=== PATIENT | male | born 1940 | race Hispanic/Latino ===

== ENCOUNTER 2017-10-18 10:08 | Emergency (ER) | payer MEDICARE ==
[2017-10-18 10:12] VITALS: BMI 22.5
[2017-10-18] MEDS ORDERED: Iodixanol 320 MG/ML 100 ML BOTTLE IV ONE (10:15)
[2017-10-18 10:24] LABS: BASO # 0.1 K/uL (0.0-0.2); BASO % 0.9 % (0.0-2.0); EOS # 0.1 K/uL (0.0-0.7); EOS % 1.2 % (0.0-4.0); HEMOGLOBIN 14.8 g/dL (12.0-18.0); LYMPH % 8.6 % (20.0-40.0); MEAN CELL VOLUME 95.3 fL (80.0-94.0); MEAN CORPUSCULAR HEMOGLOBIN 32.8 pg (27.0-31.0); MEAN CORPUSCULAR HGB CONC 34.4 g/dL (33.0-37.0); MEAN PLATELET VOLUME 10.8 fL (7.2-11.7); MONO # 0.9 K/uL (0.0-0.8); MONO % 7.5 % (0.0-10.0); NEUT # 9.5 K/uL (1.8-7.0); NEUT % 81.8 % (50.0-75.0); RED CELL DISTRIBUTION WIDTH 13.3 % (11.5-14.5); WHITE BLOOD COUNT 11.7 K/uL (4.8-10.8)
[2017-10-18 10:30] LABS: PLATELET COUNT 130 K/uL (130-400)
[2017-10-18 10:32] LABS: INR 1.2; PROTHROMBIN TIME 13.3 SECONDS (9.7-12.2)
[2017-10-18] MEDS ORDERED: Labetalol 25mg/5ml Syringe IVP STA (10:35)
--- NOTE | 2017-10-18 10:35 | CT ---
PROCEDURE: CT HEAD WITHOUT CONTRAST. HISTORY: Code Stroke COMPARISON: None available. TECHNIQUE: Axial computed tomography images were obtained through the head/brain without intravenous contrast. Radiation dose: Total exam DLP = 785.84 mGy-cm. This CT exam was performed using one or more of the following dose reduction techniques: Automated exposure control, adjustment of the mA and/or kV according to patient size, and/or use of iterative reconstruction technique. . FINDINGS: HEMORRHAGE: No acute parenchymal, subarachnoid or extra-axial the hemorrhage. BRAIN: There is a dense left MCA sign most consistent with a thrombus of the distal left MCA. Mild chronic periventricular white matter ischemic changes seen extending peripherally the deep and subcortical white matter both cerebral hemispheres. In addition, there is a chronic appearing small infarct left caudate head. Moderate generalized volume loss. VENTRICLES: No obstructive hydrocephalus. CALVARIUM: There are no acute calvarial fractures PARANASAL SINUSES: Unremarkable as visualized. No significant inflammatory changes. MASTOID AIR CELLS: Unremarkable as visualized. No inflammatory changes. OTHER FINDINGS: None. IMPRESSION: No acute intracranial hemorrhage. There is a dense left-sided MCA sign most consistent with thrombus in the distal left MCA. Mild chronic white matter ischemic changes with chronic appearing small lacunar type infarct left caudate head. Consider followup MRI. Moderate generalized volume loss Findings discussed with Dr. Alvarez at 10:30 a.m. with written down and read back verification.
[2017-10-18 10:37] LABS: ALB/GLOB RATIO 1.5 (1.0-2.1); ALBUMIN 4.2 g/dL (3.5-5.0); ALT/SGPT 42 U/L (21-72); AST/SGOT 33 U/L (17-59); BLOOD UREA NITROGEN 12 mg/dL (9-20); GFR AFRICAN-AMERICAN > 60; GFR NON-AFRICAN AMERICAN > 60; HDL CHOLESTEROL 56 mg/dL (30-70)
[2017-10-18 10:39] VITALS: PULSE 78
--- NOTE | 2017-10-18 10:40 | C.PDOC ---
History Of Present Illness 77 y/o male brought to ED by EMS from home after being found unresponsive at 9: 30. Patient was last seen normal at 9am and as per family patient is ambulatory and has normal speech at baseline. HPI limited secondary to patient's clinical condition. Chief Complaint (Nursing): Weakness/Neurological Deficit History Per: EMS History/Exam Limitations: clinical condition Onset/Duration Of Symptoms: Hrs Current Symptoms Are (Timing): Still Present Past Medical History Reviewed: Historical Data, Nursing Documentation, Vital Signs Vital Signs: Last Vital Signs Temp 99.7 F H 10/18/17 10:17 Pulse 78 10/18/17 11:08 Resp 20 10/18/17 11:30 BP 185/82 H 10/18/17 11:30 Pulse Ox 96 10/18/17 12:01 - Medical History PMH: No Chronic Diseases Surgical History: No Surg Hx Family History: States: No Known Family Hx - Social History Hx Alcohol Use: No Hx Substance Use: No - Immunization History Hx Tetanus Toxoid Vaccination: No Hx Influenza Vaccination: No Review Of Systems Review Of Systems: ROS cannot be obtained secondary to pt's inabilty to answer questions. Physical Exam - Physical Exam Appears: Non-toxic Skin: Warm, Dry, No Rash Head: Atraumatic, Normacephalic Eye(s): bilateral: PERRL, EOMI Oral Mucosa: Moist Cardiovascular: Rhythm Regular Respiratory: Normal Breath Sounds, No Rales, No Rhonchi, No Wheezing Gastrointestinal/Abdominal: Soft, No Tenderness, No Guarding, No Rebound Neurological/Psych: Other (Right facial droop. Right arm flaccid, right leg spastic. forced gaze to the right. Patient non verbal) ED Course And Treatment - Laboratory Results Result Diagrams: 10/18/17 10:19 10/18/17 10:19 Lab Interpretation: Normal ECG: Interpreted By Ar ECG Rhythm: Sinus Rhythm ECG Interpretation: Normal Rate From EC O2 Sat by Pulse Oximetry: 96 Pulse Ox Interpretation: Normal - Radiology CXR: Interpreted by Ar CXR Interpretation: Yes: No Acute Disease, Other (congestive changes, alveolar disease) Reevaluation Time: 11:45 (transferred to [facility]) Reassessment Condition: Unchanged (no significant neuro changes while in ED) Critical Care Time - Critical Care Note Total Time (in mins): 90 Documented critical care: time excludes all time spent performing seperately billable procedures. Medical Decision Making Medical Decision Makin:10- Seen by me, immediatly on arrival, Code stroke called, finger stick done 151 10:30- CT read as dense left MCA sign 10:30- D/w Dr. Whitman, agrees with stroke protocol for TPA 10:35- TPA Ordered 10:52- TPA given 1145: transfer to [facility] Disposition - Disposition Disposition: Trans to Other Acute Care Hosp Disposition Time: 11:45 Condition: FAIR Forms: [facility] (American) - POA Core Measure Indicators: Code Stroke - Clinical Impression Clinical Impression: Acute ischemic left ICA stroke - Scribe Statement The provider has reviewed the documentation as recorded by the Scribe Rex Ryan All medical record entries made by the Scribe were at my direction and personally dictated by me. I have reviewed the chart and agree that the record accurately reflects my personal performance of the history, physical exam, medical decision making, and the department course for this patient. I have also personally directed, reviewed, and agree with the discharge instructions and disposition.
[2017-10-18] MEDS ORDERED: Labetalol 25mg/5ml Syringe ONE ×2 (10:42→10:57)
[2017-10-18 10:48] LABS: LDL CHOLESTEROL 129 mg/dL (0-129)
--- NOTE | 2017-10-18 10:53 | RAD ---
HISTORY: Code Stroke COMPARISON: No prior. FINDINGS: LUNGS: Diffuse interstitial/alveolar opacity. Possible pulmonary edema. No focal consolidation. PLEURA: No significant pleural effusion identified, no pneumothorax apparent. CARDIOVASCULAR: Normal heart size. Congestive change noted. OSSEOUS STRUCTURES: No significant abnormalities. VISUALIZED UPPER ABDOMEN: Normal. OTHER FINDINGS: None. IMPRESSION: Congestive change and diffuse interstitial/alveolar opacity. Possible pulmonary edema.
[2017-10-18 10:58] VITALS: TEMP 99.7
--- NOTE | 2017-10-18 11:05 | CT ---
PROCEDURE: CT Angiography of the neck and brain dated 10/18/2017 HISTORY: Code stroke COMPARISON: Correlation made with concurrent noncontrast CT scan brain TECHNIQUE: Contiguous helical/transaxial sections of the neck were obtained from the level of the skull-base to the superior mediastinum in the arteriographic phase of enhancement. Coronal and sagittal reformats or also generated. IV contrast dose: 100 cc Visipaque 320 Radiation Dose - DLP: 533.96 mGy-cm This CT exam was performed using one or more of the following dose reduction techniques: Automated exposure control, adjustment of the mA and/or kV according to patient size, and/or use of iterative reconstruction technique. . FINDINGS: There are mild partially calcified atherosclerotic plaque seen along the transverse portion of the aortic arch. The right brachiocephalic and left common carotid arteries arise from a common trunk. . There are partially calcified atherosclerotic plaque changes seen at both carotid bifurcations right side more significant than the left with narrowing of the right carotid bifurcation estimated at approximately 50 percent. There is complete occlusion of the left internal carotid artery just distal to the bifurcation which extends into the petrous and, cavernous and supraclinoid segments as well as proximal left MCA. . . . There is some opacification of both A1 segments left-sided which is larger in caliber/more dominant than the right. As mentioned above, there is occlusion of the proximal left middle cerebral artery however however several perisylvian branches are opacified likely due to collateral flow. . Partially calcified atherosclerotic plaque changes seen along the right cavernous carotid segment. Remaining visualized major branches of the [place] are patent. The vertebral arteries are patent throughout right-sided which is larger in caliber/more dominant than the left side. Basilar artery is patent. . The left posterior communicating artery is not visualized. . No evidence of large aneurysm nor vascular malformation. 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 There is also occlusion of the proximal left middle cerebral artery however there are a few distal of distal perisylvian MCA branches are patent although. No evidence of large aneurysm nor vascular malformation. Findings discussed with Dr. Alvarez at 10:55 a.m. with written down and read back verification.
[2017-10-18 11:21] LABS: LYMPHOCYTE 2 % (20-40); MONOCYTE 7 % (0-10); NEUTROPHIL 91 % (50-75); PLATELET ESTIMATE NORMAL (NORMAL); TOTAL CELLS COUNTED 100
[2017-10-18] MEDS ORDERED: niCARdipine IV 25 MG in Sodium Chloride 0.9% 240 ML IV SCH (11:30)
[2017-10-18 11:39] VITALS: BP 185/82; RESP 20
[2017-10-18 12:01] VITALS: O2SAT 96
--- NOTE | 2017-10-18 12:34 | CP.PCM.CON ---
History of Present Illness - History of Present Illness History of Present Illness: Mr. Jiménez is a 77-year-old man with a past medical history of HTN, HLD, who was noted to have right side weakness that started about 1 hour prior to arrival to the ED. When he was first evaluated in the ED, he had right side hemiplegia, aphasia and left gaze deviation. A "code stroke" was called and the patient was sent to CT scan. Non-contrast CT head did not show any acute findings, but there was a dense left MCA sign and CTA of the head/neck showed a heavy clot burden in the left internal ICA and MCA. tPA was recommended and the infusion was started, and the patient was referred to neurointerventional. Transfer to [place] for thrombectomy by Dr. Bennie Shelton was arranged. Review of Systems - Review of Systems All systems: reviewed and no additional remarkable complaints except Past Patient History - Past Social History Smoking Status: Unknown If Ever Smoked - PSYCHIATRIC Hx Substance Use: No - SURGICAL HISTORY Hx Surgeries: No Meds Allergies/Adverse Reactions: Allergies Allergy/AdvReac Type Severity Reaction Status Date / Time No Known Allergies Allergy Verified 10/18/17 10:20 Physical Exam - Neurological Exam Neurological exam: Altered, CN II-XII Intact Additional comments: Left gaze preference, global aphasia, right side hemiplegia/hemianesthesia: NIHSS= 22 Results - Vital Signs Recent Vital Signs: Last Vital Signs Temp 99.7 F H 10/18/17 10:17 Pulse 78 10/18/17 11:08 Resp 20 10/18/17 11:30 BP 185/82 H 10/18/17 11:30 Pulse Ox 96 10/18/17 12:01 - Labs Result Diagrams: 10/18/17 10:19 10/18/17 10:19 Labs: Laboratory Results - last 24 hr 10/18/17 10/18/17 10/18/17 10:12 10:19 10:19 WBC 11.7 H RBC 4.50 Hgb 14.8 Hct 42.9 MCV 95.3 H MCH 32.8 H MCHC 34.4 RDW 13.3 Plt Count 130 MPV 10.8 Neut % (Auto) 81.8 H Lymph % (Auto) 8.6 L [place] % (Auto) 7.5 Eos % (Auto) 1.2 Baso % (Auto) 0.9 Neut # (Auto) 9.5 H Lymph # (Auto) 1.0 [place] # (Auto) 0.9 H Eos # (Auto) 0.1 Baso # (Auto) 0.1 Neutrophils % (Manual) 91 H Lymphocytes % (Manual) 2 L Monocytes % (Manual) 7 Platelet Estimate Normal RBC Morphology Normal PT 13.3 H INR 1.2 APTT 30 Sodium Potassium Chloride Carbon Dioxide Anion Gap BUN Creatinine Est GFR ( Amer) Est GFR (Non-Af Amer) POC Glucose (mg/dL) 151 H Random Glucose Hemoglobin A1c Calcium Total Bilirubin AST ALT Alkaline Phosphatase Troponin I Total Protein Albumin Globulin Albumin/Globulin Ratio Triglycerides Cholesterol LDL Cholesterol Direct HDL Cholesterol Blood Type Antibody Screen 10/18/17 10/18/17 10/18/17 10:19 10:19 10:19 WBC RBC Hgb Hct MCV MCH MCHC RDW Plt Count MPV Neut % (Auto) Lymph % (Auto) [place] % (Auto) Eos % (Auto) Baso % (Auto) Neut # (Auto) Lymph # (Auto) [place] # (Auto) Eos # (Auto) Baso # (Auto) Neutrophils % (Manual) Lymphocytes % (Manual) Monocytes % (Manual) Platelet Estimate RBC Morphology PT INR APTT Sodium 144 Potassium 3.1 L Chloride 101 Carbon Dioxide 31 H Anion Gap 14 BUN 12 Creatinine 1.0 Est GFR ( Amer) > 60 Est GFR (Non-Af Amer) > 60 POC Glucose (mg/dL) Random Glucose 136 H Hemoglobin A1c 5.7 Calcium 9.0 Total Bilirubin 1.9 H AST 33 ALT 42 Alkaline Phosphatase 64 Troponin I 0.0320 Total Protein 7.0 Albumin 4.2 Globulin 2.8 Albumin/Globulin Ratio 1.5 Triglycerides 74 Cholesterol 204 H LDL Cholesterol Direct 129 HDL Cholesterol 56 Blood Type AB NEGATIVE Antibody Screen Negative Assessment & Plan (1) Acute ischemic left ICA stroke Assessment and Plan: Will give tPA. Keep BP below 185/105 mm Hg. Will follow post-tPA protocol and transfer for thrombecotmy to [facility]. Thank you. Status: Acute Priority: High
--- NOTE | 2017-10-19 19:52 | CARD ---
APPROVED REPORT EKG Measurement Heart [id number] [place] [id number] <Conclusion> Normal sinus rhythm Minimal voltage criteria for LVH, may be normal variant Nonspecific T wave abnormality Prolonged QT Abnormal ECG
== END 2017-10-18 11:35 | disposition short-term general hospital (02) ==
LOC: C.ER 10:08
DX: I63.232 Cerebral infarction due to unspecified occlusion or stenosis of left carotid arteries (principal); E78.5 Hyperlipidemia, unspecified; I10 Essential (primary) hypertension
CPT/HCPCS: 37195; 70450; 70496; 70498; 71045; 80053; 80061; 82948; 83036; 84484; 85025; 85610; 85730; 86850; 86900; 93005; 96365; 96375; 99291; 99292; J2997; Q9967